=== PATIENT | male | born 1970 | race Caucasian/White ===

== ENCOUNTER 2020-06-12 19:48 | Emergency (ER) | payer BC, SELFPAY ==
[2020-06-12] VITALS (8 sets, daily range): BP systolic 140–163; BP diastolic 90–103; PULSE 76–90; RESP 16–17; TEMP 36.6; O2SAT 95–100
--- NOTE | ~2020-06-12 | XR_ITS ---
EXAMINATION: XR chest 1V portable EXAM DATE: 06/12/2020 20:19 INDICATION: Syncope. History of hypertension. TECHNIQUE: Portable AP frontal chest x-ray was obtained. Comparison is made to prior examination from 08/09/2017. FINDINGS: The lungs are clear. There are no pleural effusions. Cardiac silhouette is prominent but magnified on this AP technique. There is no pneumothorax suspected. The bones and soft tissues are unremarkable. IMPRESSION: No acute cardiopulmonary findings. Reviewed, dictated and finalized at location A.
--- NOTE | ~2020-06-12 | CT_ITS ---
EXAMINATION: CTA chest PE protocol EXAM DATE: 06/12/2020 21:38 INDICATION: Syncope, elevated d dimer . TECHNIQUE: Spiral CTA of the chest (pulmonary arteries) was performed with 100 cc Omnipaque 350 intr avenous contrast injection. Images were acquired during the pulmonary arterial phase. Coronal maxi mum intensity projection 3D-reconstructions were created by the technologist on dedicated workstation . Axial, coronal and sagittal reformatted images were reviewed. The dose-length product (DLP) for t his examination was 427.39 mGy-cm. The exposure was tailored according to patient size (auto mA exp osure control), and iterative reconstruction (ASIR) was used as additional dose reduction technique. There is no prior study for comparison. FINDINGS: Pulmonary arteries are well opacified and without intraluminal filling defects. There is a n azygos fissure. There is mild emphysema. No thoracic aortic dissection. The lungs are clear. The re are no pleural or pericardial effusions. Tracheobronchial tree is patent. There is no mediasti nal, hilar or axillary lymphadenopathy. There is no pneumothorax. Heart normal in size. There i s mild coronary arterial calcification, arterial sclerosis. Upper abdomen is unremarkable. There i s mild thoracic spondylosis without osteoblastic or osteolytic lesions identified. IMPRESSION: 1. No pulmonary emboli or acute cardiopulmonary findings. 2. Mild emphysema. Reviewed, dictated and finalized at location .
--- NOTE | ~2020-06-12 | CT_ITS ---
EXAMINATION: CT brain wo [facility] EXAM DATE: 06/12/2020 20:12 INDICATION: Syncope. TECHNIQUE: Spiral CT of the head was performed without contrast. Axial, coronal and sagittal images were reviewed. The dose-length product (DLP) for this examination was 605.33 mGy-cm. The exposure w as tailored according to patient size, and iterative reconstruction (ASIR) was used as additional dos e reduction technique. There is no prior study for comparison. FINDINGS: There is no acute intraparenchymal hemorrhage. No evidence of intraparenchymal brain mass lesion. 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 No evidence of acute infarction. There is no mass effect or midline shift. The ventricles are normal in size. There are no extra-axial collec tions. There are no acute calvarial fractures. The orbits are unremarkable. Soft tissue is unremark able. The visualized sinuses and mastoid air cells are well aerated. IMPRESSION: 1. No acute intracranial findings. Reviewed, dictated and finalized at location A.
--- NOTE | 2020-06-12 19:58 | ECG_ITS ---
Measurements Intervals [place] Rate: 84 P: 52 OH: 133 QRS: 42 QRSD: 90 T: 45 QT: 367 QTc: 436 Interpretive Statements SINUS RHYTHM POSSIBLE LEFT ATRIAL ENLARGEMENT BASELINE WANDER- II, III, V6 BORDERLINE ECG Electronically Signed On 06-13-2020 7:45:43 CDT by Denis Moreira D.O.
[2020-06-12 20:14] LABS: Basophils Absolute Auto 0.1 K/mm3 (0.0-0.1); Basophils Percent Auto 0.7 % (0.2-1.2); Eosinophils Absolute Auto 0.2 K/mm3 (0-0.3); Eosinophils Percent Auto 2.3 % (0-4.4); Hematocrit 50.1 % (42.0-52.0); Immature Granulocyte Absolute 0.02 K/mm3 (0.00-0.031); Immature Granulocyte Percent A 0.3 % (0-0.5); Lymphocytes Absolute Auto 2.38 K/mm3 (0.9-3.2); Lymphocytes Percent Auto 32.4 % (18.3-44.2); Mean Corpuscular HGB Conc 33.9 g/dl (32-36); Mean Corpuscular Hemoglobin 33.5 pg (26-34); Mean Corpuscular Volume 98.6 fl (80-100); Mean Platelet Volume 9.3 fl (7.4-10.4); Monocytes Absolute Auto 0.7 K/mm3 (0.1-0.6); Monocytes Percent Auto 9.9 % (2.6-8.5); Neutrophils Percent Auto 54.4 % (45.5-73.1); Platelet Count Result 171 k/mm3 (150-375); Red Blood Count 5.08 M/mm3 (4.6-6.20); Red Cell Distribution Width 13.2 % (11.5-14.5); White Blood Count 7.3 K/mm3 (4.5-10.0)
[2020-06-12] MEDS: SODIUM CHLORIDE 0.9% IV 1,000 ML 999 ML IV CONT (20:38)
[2020-06-12 20:51] LABS: Add Urine Microscopic? NO; Appearance Urine Clear (Clear); Bilirubin Urine Negative (Negative); Blood Urine Negative (Negative); Color Urine Straw (Yellow); Glucose Urine UA Negative (Negative); Ketones Urine Negative (Negative); Leukocyte Esterase Ur Negative LEU/UL (Negative); Nitrate Urine Negative (Negative); Protein Urine Negative (Negative); Specific Grav Ur 1.005 (1.001-1.035); Urobilinogen Urine Negative mg/dL (<2.0)
[2020-06-12 20:57] LABS: INR 0.8; Partial Thromboplastin Time 24.7 SECONDS (22.3-36.8); Prothrombin Time 11.4 Seconds (11.1-14.7)
[2020-06-12 20:58] LABS: Lactic Acid Reflex 1.3 mmol/L (0.7-2.1)
[2020-06-12 20:59] LABS: Alanine Aminotransferase 49 U/L (4-50); Alkaline Phosphatase 110 U/L (38-126); Anion Gap 5 mmol/L (8-16); Aspartate Amino Transferase 53 U/L (17-59); Bilirubin,Total 0.5 mg/dL (0.2-1.3); Blood Urea Nitrogen 20 mg/dL (9-20); Calcium 8.6 mg/dL (8.4-10.2); Carbon Dioxide 29 mmol/L (22-30); Chloride 101 mmol/L (98-107); Estimated CRCL calculation 76 ml/min; Estimated Glomerular Filt Rate > 60; Glucose 81 mg/dL (75-110); Potassium 4.4 mmol/L (3.4-5.0); Sodium 135 mmol/L (137-145)
[2020-06-12 21:09] LABS: NT Pro B Type Natriuretic Pept 118 PG/ML (5-100)
[2020-06-12 21:32] LABS: Troponin I < 0.012 ng/mL (0.000-0.034)
--- NOTE | 2020-06-12 21:55 | ED.GENADULT ---
HPI - General Adult General Chief complaint: Syncope Stated complaint: syncopal episode Time Seen by Provider: 06/12/20 19:53 History of Present Illness HPI narrative: Patient is a 49-year-old gentleman who presents emerged department chief complaint of syncope. Patient reports he was at home and suddenly had loss of conscious. Patient reports that he is not hurting anywhere reports that now he does feels, tired and rundown. Patient denies chest pain denies shortness of breath denies preceding symptoms. Patient states that now he feels back to normal at this point Related Data Home Medications Medication Instructions Recorded Confirmed aspirin 81 mg tablet,delayed 81 mg PO DAILY 06/12/19 06/12/19 release atorvastatin 20 mg tablet 20 mg PO DAILY 06/12/19 06/12/19 clopidogrel 75 mg tablet 75 mg PO DAILY 06/12/19 06/12/19 metoprolol tartrate 25 mg tablet 25 mg PO DAILY 06/12/19 06/12/19 Allergies Allergy/AdvReac Type Severity Reaction Status Date / Time Penicillins Allergy Unknown Rash Verified 06/12/19 10:01 Review of Systems Review of Systems: Narrative: A 10 system review of systems was completed on the patient and is negative except for what is stated in the HPI. Nursing and ancillary documentation was reviewed. [facility] Social History Social History (Updated 06/12/19 @ 10:16 by Carla Maradiaga) Smoking status: Current every day smoker Alcohol intake: current Comments Past medical history significant for cardiac disease has had prior stent placement Social history the patient smokes cigarettes Exam Narrative: Exam Narrative: GENERAL: Well-appearing, well-nourished, and in no acute distress. HEAD: Normocephalic, atraumatic. EYES: PERRLA and EOMI. ENT: Nares clear, no rhinorrhea or epistaxis. Mucous membranes moist. NECK: Supple. CHEST: Clear to auscultation. No respiratory distress. HEART: Regular rate and rhythm. No murmur heard. Normal peripheral pulses. ABDOMEN: Soft, nontender, nondistended, normal active bowel sounds. EXTREMITIES: Normal range of motion. No edema. SKIN: Warm, dry, no rash. NEURO: No focal deficits. Alert and oriented x3. PSYCH: Normal mood and affect. Course Course Emergency Course: EKG shows sinus rhythm rate of [address] elevation or ST depression Patient's laboratory studies were within normal limits with exception of mildly elevated D-dimer. A PE protocol was obtained which showed no evidence of pulmonary embolism. Due to the patient having no preceding symptoms and prior issues with syncope leading to cardiac stenting of a plan was originally to admit the patient to the hospital it was discussed with the patient further and the patient states this time he wishes for outpatient follow-up. It was explained there is a possibility we could miss further findings but the patient was adamant about going home at this time. Vital Signs Vital signs: Vital Signs Pulse Rate 87 06/12/20 19:52 Respiratory Rate 16 06/12/20 19:52 Blood Pressure 158/102 H 06/12/20 19:52 Pulse Oximetry 99 06/12/20 19:52 Pulse Rate 82 06/12/20 20:46 Respiratory Rate 17 06/12/20 20:46 Blood Pressure 140/103 H 06/12/20 20:46 Pulse Oximetry 100 06/12/20 20:30 Medical Decision Making Vital Signs Vital Signs: Vital Signs Pulse Rate 87 06/12/20 19:52 Respiratory Rate 16 06/12/20 19:52 Blood Pressure 158/102 H 06/12/20 19:52 Pulse Oximetry 99 06/12/20 19:52 Pulse Rate 82 06/12/20 20:46 Respiratory Rate 17 06/12/20 20:46 Blood Pressure 140/103 H 06/12/20 20:46 Pulse Oximetry 100 06/12/20 20:30 Lab Data Result diagrams: 06/12/20 20:06 06/12/20 20:41 Labs: Lab Results 06/12/20 06/12/20 06/12/20 Range/Units 20:06 20:41 20:41 WBC 7.3 (4.5-10.0) K/mm3 RBC 5.08 (4.6-6.20) M/mm3 Hgb 17.0 (14.0-18.0) g/dL Hct 50.1 (42.0-52.0) % MCV 98.6 (80-100) fl MCH 33.5 (26-34) pg MCHC 3
== END 2020-06-12 22:27 | disposition home or self-care (01) ==
PROVIDERS: Emergency Provider Emergency Medicine; PCP Family Medicine
DX: R55 Syncope and collapse (principal); Z95.5 Presence of coronary angioplasty implant and graft; I25.2 Old myocardial infarction; I10 Essential (primary) hypertension; F17.200 Nicotine dependence, unspecified, uncomplicated
CPT/HCPCS: 36415; 70450; 71045; 71275; 80053; 81003; 83605; 83735; 83880; 84484; 85025; 85380; 85610; 85730; 93005; 96360; 99284; J7030; Q9967

== ENCOUNTER 2022-10-05 08:39 | Outpatient (CLI) | payer BC, SELFPAY ==
[2022-10-05 09:08] LABS: Hematocrit 50.7 % (42.0-52.0); Hemoglobin 17.1 g/dL (14.0-18.0); Mean Corpuscular HGB Conc 33.7 g/dl (32-36); Mean Corpuscular Hemoglobin 33.5 pg (26-34); Mean Corpuscular Volume 99.4 fl (80-100); Mean Platelet Volume 8.5 fl (7.4-10.4); Platelet Count Result 170 k/mm3 (150-375); Red Cell Distribution Width 12.5 % (11.5-14.5); White Blood Count 4.8 K/mm3 (4.5-10.0)
[2022-10-05 09:23] LABS: Alanine Aminotransferase 28 U/L (6-50); Albumin Level 3.7 g/dL (3.5-5.1); Alkaline Phosphatase 62 U/L (38-126); Anion Gap 4 mmol/L (8-16); Aspartate Amino Transferase 33 U/L (17-59); Bilirubin,Total 0.7 mg/dL (0.2-1.3); Blood Urea Nitrogen 10 mg/dL (9-20); Calcium 8.4 mg/dL (8.4-10.2); Carbon Dioxide 31 mmol/L (22-30); Chloride 101 mmol/L (98-107); Cholesterol 167 mg/dL (0-200); Estimated Glomerular Filt Rate > 60; Glucose 87 mg/dL (65-110); HDL Direct 54 mg/dL; Potassium 4.7 mmol/L (3.4-5.0); Sodium 136 mmol/L (137-145); Triglycerides 207 mg/dL (<150)
[2022-10-05 09:34] LABS: LDL Cholesterol Direct 76 mg/dL
[2022-10-05 09:52] LABS: Thyroid Stimulating Hormone 0.601 uIU/mL (0.465-4.680)
[2022-10-05 15:45] LABS: Prostate Specific Antigen 0.6 ng/mL (< OR = 4.0)
== END 2022-10-05 08:40 | disposition home or self-care (01) ==
LOC: ANHLAB 08:41
PROVIDERS: PCP Family Medicine; Visit Provider Nurse Practitioner Family
DX: I10 Essential (primary) hypertension (principal); Z12.5 Encounter for screening for malignant neoplasm of prostate; Z13.29 Encounter for screening for other suspected endocrine disorder
CPT/HCPCS: 36415; 80053; 80061; 84153; 84443; 85027; G0103